=== PATIENT | female | born 1975 | race Caucasian/White ===

== ENCOUNTER → 2016-08-15 | Outpatient (CLI) | payer BC ==
[~2016-08-15] MED LIST: CLC100 PO; FRRS300 PO; IBUP-1428 PO; OXYC-57 PO; PRENTAB26 PO
[2016-08-15 18:11] LABS: BLOOD UREA NITROGEN 13 mg/dl (7-18); BUN/CREATININE RATIO 16.9 (10-20); CALCIUM 9.2 mg/dl (8.5-10.1); CARBON DIOXIDE 30 mmol/L (21-32); CHLORIDE 105 mmol/L (98-107); CREATININE 0.78 mg/dl (0.60-1.20); GLUCOSE 81 mg/dl (70-99); SODIUM 141 mmol/L (136-145)
[2016-08-15 18:14] LABS: CHOLESTEROL 180 mg/dl (0-200); CHOLESTEROL/HDL RATIO 4.3; HDL CHOLESTEROL 42 mg/dl; LDL CHOLESTEROL CALCULATED 114 mg/dl; TRIGLYCERIDES 120 mg/dl (0-150); VERY LOW DENSITY LIPOPROT CALC 24 mg/dl
== END | disposition home or self-care (01) ==
LOC: C.LABPBG 15:54
PROVIDERS: ATTEND Physician Assistant
DX: Z00.00 Encounter for general adult medical examination without abnormal findings (principal); Z13.220 Encounter for screening for lipoid disorders

== ENCOUNTER → 2016-08-25 | Outpatient (CLI) | payer BC ==
--- NOTE | 2016-08-25 08:03 | DIAGNOSTIC IMAGING REPORT ---
ABDOMINAL ULTRASOUND, RIGHT UPPER QUADRANT HISTORY: Epigastric pain.. COMPARISON: None. FINDINGS: Liver is sonographically normal. There is no biliary ductal dilatation. No gallstones are identified. There is no gallbladder wall thickening. The pancreatic tail is slightly obscured by overlying bowel gas. There is no pancreatic ductal dilatation. There is no right hydronephrosis. IMPRESSION: 1. No significant abnormality identified within the right upper quadrant. 2. Partially obscured pancreas. Electronically signed by: Romain Matamoros M.D. 08/25/2016 8:01 AM Dictated Date/Time: 08/25/2016 8:00 AM
== END | disposition home or self-care (01) ==
LOC: C.ULTR 07:24
PROVIDERS: ATTEND Physician Assistant
DX: R10.13 Epigastric pain (principal)

== ENCOUNTER → 2017-09-24 | Outpatient (CLI) | payer BC ==
--- NOTE | 2017-09-24 13:11 | DIAGNOSTIC IMAGING REPORT ---
R KNEE 4 OR MORE VIEWS HISTORY: 41 years-old Female M25.561 Knee pain, r acute right knee pain none available COMPARISON: None available TECHNIQUE: 4 views of the right knee FINDINGS: No acute fracture, dislocation, osteochondral defect or significant degenerative changes. Small joint effusion. No opaque foreign body. IMPRESSION: Small joint effusion without acute fracture. The above report was generated using voice recognition software. It may contain grammatical, syntax or spelling errors. Electronically signed by: Fabian Gutiérrez M.D. 09/24/2017 1:09 PM Dictated Date/Time: 09/24/2017 1:08 PM
== END | disposition home or self-care (01) ==
LOC: C.RAD 12:13
PROVIDERS: ATTEND Physician Assistant
DX: M25.461 Effusion, right knee (principal)